=== PATIENT | female | born 1995 | race Caucasian/White ===

== ENCOUNTER 2016-08-03 08:23 | Emergency (ER) | payer OTHER ==
[~2016-08-03] VITALS: Ht 167.6 cm; Wt 81.5 kg
[~2016-08-03 08:23] MED LIST: ADVIL,NUPRIN,M200 MG PO; ANUSOL HC,ANUCO25 MG PR; CLARITIN10 M3 PO; CLEOCIN300 MG PO; COLACE100 MG PO; ERYTHROMYC1 APPLICAT LEFT EYE; FLONASE16 G1 BOTH NARES; KEFLEX500 MG PO; MECLIZINE HCL25 MG PO; OXYCODONE H5 MG/5 ML PO; PEN-VEE K,VEET500 MG PO; PERCOCET 5/31 TABLET PO; TRAMADOL HCL50 MG PO; ZOFRAN4 MG PO
[2016-08-03] MEDS ORDERED: FLONASE16 G1 BOTH NARES (08:39)
[2016-08-03] MEDS ORDERED: ROBITUSSIN AC,T10 ML PO (08:39)
[2016-08-03 09:19] VITALS: BP 125/84
== END 2016-08-03 09:23 | disposition home or self-care (01) ==
LOC: EME 08:23
DX: J06.9 Acute upper respiratory infection, unspecified (principal); R11.0 Nausea; F17.200 Nicotine dependence, unspecified, uncomplicated
CPT/HCPCS: 99281; 99284

== ENCOUNTER 2016-08-10 09:44 | Emergency (ER) | payer OTHER ==
[~2016-08-10] VITALS: Ht 167.6 cm; Wt 80.4 kg
[~2016-08-10 09:44] MED LIST changes: +ROBITUSSIN AC,T10 ML PO
[2016-08-10] MEDS ORDERED: ZITHROMAX Z-PA250 MG PO (10:06)
[2016-08-10 10:31] VITALS: BP 120/80
== END 2016-08-10 10:32 | disposition home or self-care (01) ==
LOC: EME 09:44
DX: J18.9 Pneumonia, unspecified organism (principal); F17.200 Nicotine dependence, unspecified, uncomplicated
CPT/HCPCS: 99281; 99283

== ENCOUNTER 2017-02-09 08:40 | Emergency (ER) | payer OTHER ==
[~2017-02-09] VITALS: Ht 167.6 cm; Wt 79.7 kg
[~2017-02-09 08:40] MED LIST changes: +ZITHROMAX Z-PA250 MG PO
[2017-02-09 10:04] LABS: BASOPHIL COUNT 0.1 K/uL (0-0.1); EOSINOPHIL (%) 0.3 % (0-5); EOSINOPHIL COUNT 0.1 K/uL (0-0.3); HEMATOCRIT 42.1 % (36.0-46.0); IMMATURE GRANULOCYTE (%) 0.4 % (0.0-0.7); IMMATURE GRANULOCYTE COUNT 0.1 K/uL; LYMPHOCYTE COUNT 2.7 K/uL (1.0-2.8); MCHC 33.7 G/DL (30.0-36.0); MCV 97.9 FL (83-99); MEAN PLAT.VOLUME 10.2 uM^3 (9.5-12.4); MONOCYTE (%) 6.3 % (3-12); MONOCYTE COUNT 1.1 K/uL (0-0.8); NEUTROPHIL (%) 77.6 % (45-76); PLATELET COUNT 335 K/uL (156-360); RBC DIS.WIDTH-CV 12.4 % (11.8-14.6); RBC DIS.WIDTH-SD 44.8 % (39-53)
[2017-02-09 10:07] LABS: ADD MIUA? YES; BILIRUBIN NEGATIVE; BLOOD MODERATE; COLOR AMBER ((YELLOW)); GLUCOSE (STRIP) NEGATIVE; KETONES NEGATIVE; LEUKOCYTES MODERATE; NITRITE POSITIVE; PROTEIN (STRIP) NEGATIVE; SPECIFIC GRAVITY 1.005 (1.000-1.030)
[2017-02-09 10:15] LABS: BACTERIA 3+ /HPF; CALCIUM OXALATE CRYSTALS 3+ /HPF; CHLORIDE 106 mEq/L (99-109); EPITHELIAL CELLS 2+ /HPF; MUCUS NONE SEEN /LPF; POTASSIUM 3.7 mEq/L (3.7-5.4); SODIUM 139 mEq/L (136-147); UCUL ADDED? YES; WHITE BLOOD CELLS TNTC /HPF (0-5)
[2017-02-09 10:17] LABS: GLUCOSE 87 mg/dL (70-99)
[2017-02-09 10:18] LABS: ANION GAP 10 MEQ/L (2-14)
[2017-02-09 10:21] LABS: GFR ESTIMATE (CALCULATED) > 59 mL/min/
[2017-02-09 10:22] LABS: UREA NITROGEN (BUN) 7 mg/dL (9-23)
[2017-02-09 10:32] LABS: QUANTITATIVE HCG < 4.0 MIU/ML
[2017-02-09] MEDS ORDERED: TERAZOL 745 GM VG (12:23)
[2017-02-09] MEDS ORDERED: CIPRO500 MG PO (12:23)
[2017-02-09 12:32] VITALS: BP 110/70
[2017-02-10 12:42] LABS: CHLAMYDIA TRACHOMATIS NEGATIVE; NEISSERIA GONORRHOEAE POSITIVE
== END 2017-02-09 12:33 | disposition home or self-care (01) ==
LOC: EME 08:40
PROVIDERS: Emergency Medicine
DX: N39.0 Urinary tract infection, site not specified (principal); B37.3 Candidiasis of vulva and vagina; F32.9 Major depressive disorder, single episode, unspecified; F43.10 Post-traumatic stress disorder, unspecified; F41.9 Anxiety disorder, unspecified; F17.210 Nicotine dependence, cigarettes, uncomplicated
CPT/HCPCS: 80048; 81003; 84702; 85025; 87086; 87210; 87491; 87591; 99281; 99284

== ENCOUNTER 2017-02-15 16:54 | Emergency (ER) | payer OTHER ==
[~2017-02-15] VITALS: Ht 167.6 cm; Wt 80.0 kg
[~2017-02-15 16:54] MED LIST changes: +CIPRO500 MG PO; +TERAZOL 745 GM VG
[2017-02-15 17:51] VITALS: BP 139/83
== END 2017-02-15 17:51 | disposition home or self-care (01) ==
LOC: EME 16:54
DX: A54.9 Gonococcal infection, unspecified (principal); F32.9 Major depressive disorder, single episode, unspecified; F41.9 Anxiety disorder, unspecified; F17.200 Nicotine dependence, unspecified, uncomplicated
CPT/HCPCS: 99281; 99283; J0696